=== PATIENT | female | born 1960 | race Two or more races ===

== ENCOUNTER 2020-01-14 10:42 | Outpatient (CLI) | payer OTHER | END 2020-01-14 10:58 | disposition home or self-care (01) | LOC: RAD 10:42 | PROVIDERS: ATTEND Physical Medicine & Rehabilitation | DX: M75.121 Complete rotator cuff tear or rupture of right shoulder, not specified as traumatic (principal); M54.5 Low back pain; M54.2 Cervicalgia ==

== ENCOUNTER 2020-01-23 09:32 | Outpatient (CLI) | payer OTHER | END 2020-01-23 09:34 | disposition home or self-care (01) | LOC: SONOGRAMA 09:32 | PROVIDERS: ATTEND Physical Medicine & Rehabilitation | DX: M75.111 Incomplete rotator cuff tear or rupture of right shoulder, not specified as traumatic (principal) ==

== ENCOUNTER 2021-02-22 13:12 | Outpatient (CLI) | payer OTHER | END 2021-02-22 13:21 | disposition home or self-care (01) | LOC: RAD 13:12 | DX: R07.89 Other chest pain (principal) ==

== ENCOUNTER 2023-12-11 13:41 | Outpatient (CLI) | payer OTHER | END 2023-12-11 13:42 | disposition home or self-care (01) | LOC: NUCLEAR 13:41 | PROVIDERS: ATTEND Obstetrics & Gynecology Gynecology | DX: M81.0 Age-related osteoporosis without current pathological fracture (principal) ==